=== PATIENT | male | born 1960 ===

== ENCOUNTER 2021-10-05 08:00 | Outpatient (CLI) | payer OTHER | END 2021-10-05 08:30 | disposition home or self-care (01) | LOC: PPH VACUNA 08:00 | PROVIDERS: ATTEND Emergency Medicine Pediatric Emergency Medicine | DX: Z23 Encounter for immunization (principal) ==

== ENCOUNTER 2023-06-16 17:27 | Emergency (ER) | payer OTHER ==
[~2023-06-16] VITALS: Ht 167.6 cm; Wt 93.0 kg
[2023-06-16] MEDS ORDERED: PLAVIX75 MG (17:32)
[2023-06-16] MEDS ORDERED: AVAPRO75 MG (17:33)
[2023-06-16] MEDS ORDERED: RESTORIL15 M1 (17:33)
== END 2023-06-17 00:37 | disposition home or self-care (01) ==
LOC: ER 17:27
PROVIDERS: Emergency Medicine
DX: R55 Syncope and collapse (principal); I10 Essential (primary) hypertension; E78.00 Pure hypercholesterolemia, unspecified; Z20.822 Contact with and (suspected) exposure to COVID-19